=== PATIENT | male | born 2000 | race Caucasian/White ===

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

== ENCOUNTER 2019-08-12 20:35 | Emergency (ER) | payer OTHER ==
[2019-08-12 20:51] VITALS: BP 127/84
--- NOTE | 2019-08-12 21:28 | UC ---
Lower Extremity/Ankle HPI - HPI Summary HPI Summary: WHILE AT WORK THIS EVENING AT TOPS A PIECE OF HEAVY EQUIPMENT FELL ON PATIENT'S RIGHT GREAT TOE. HE HAS SOME BRUISING AND MILD DISCOMFORT. IS ABLE TO WALK WITHOUT MUCH PAIN. - History of Current Complaint Chief Complaint: UCLowerExtremity Stated Complaint: R FOOT INJURY Time Seen by Provider: 08/12/19 20:52 Hx Obtained From: Patient, Family/[employer] Support - MOM Onset/Duration: Sudden Onset, Lasting Hours, Still Present Severity Initially: Mild Severity Currently: Mild Pain Intensity: 2 Pain Scale Used: 0-10 Numeric Aggravating Factor(s): Ambulation Alleviating Factor(s): Rest, Elevation Able to Bear Weight: Yes - Allergies/Home Medications Allergies/Adverse Reactions: Allergies Allergy/AdvReac Type Severity Reaction Status Date / Time dexmethylphenidate Allergy Hives Verified 08/12/19 20:51 [From Focalin] SUPREX Allergy Hives Uncoded 08/12/19 20:51 Home Medications: Home Medications NK [No Home Medications Reported] 08/12/19 [History Confirmed 08/12/19] PMH/Surg Hx/FS Hx/Imm Hx - Additional Past Medical History Additional PMH: ADHD - Surgical History Surgical History: Yes Surgery Procedure, Year, and Place: ear tubes age 2 - Family History Known Family History: Positive: Hypertension - Social History Alcohol Use: None Substance Use Type: None Smoking Status (MU): Never Smoked Tobacco - Immunization History Most Recent Influenza Vaccination: 2013 Vaccination Up to Date: Yes Review of Systems All Other Systems Reviewed And Are Negative: Yes Constitutional: Positive: Negative Skin: Positive: Bruising Respiratory: Positive: Negative Cardiovascular: Positive: Negative Gastrointestinal: Positive: Negative Physical Exam Triage Information Reviewed: Yes Appearance: Well-Appearing, No Pain Distress, Well-Nourished Vital Signs: Initial Vital Signs Temp 98 F 08/12/19 20:43 Pulse 79 08/12/19 20:43 Resp 16 08/12/19 20:43 BP 127/84 08/12/19 20:43 Pulse Ox 100 08/12/19 20:43 Vital Signs Reviewed: Yes Eyes: Positive: Conjunctiva Clear ENT: Positive: Hearing grossly normal Neck: Positive: Supple Respiratory: Positive: No respiratory distress, No accessory muscle use Cardiovascular: Positive: Pulses Normal Abdomen Description: Positive: Soft Musculoskeletal: Positive: ROM Intact, No Edema, Other: - SOFT TISSUE TENDERNESS RIGHT GREAT TOE BUT NO CLEAR BONY TENDERNESS Neurological: Positive: Alert Psychological: Positive: Age Appropriate Behavior Skin: Positive: Other - BRUISING OVERLYING RIGHT GREAT TOE Diagnostics - Radiology RIGHT GREAT TOE XRAYS Radiology Interpretation Completed By: ED Physician Lower Extremity Course/Dx - Course Course Of Treatment: NO FRACTURE OR DISLOCATION ON MY INITIAL INTERPRETATION. RADIOLOGY READ IS PENDING. CONSERVATIVE MANAGEMENT WITH REST, ICE, ELEVATION AND OTC MEDICATIONS NEEDED FOR DISCOMFORT. FOLLOW-UP WITH PCP OR ORTHOPEDICS IF SYMPTOMS NOT IMPROVING EXPECTED OVER THE NEXT COUPLE OF WEEKS. - Differential Dx/Diagnosis Provider Diagnosis: Contusion of great toe, right Discharge ED - Sign-Out/Discharge Documenting (check all that apply): Patient Departure All imaging exams completed and their final reports reviewed: No - Discharge Plan Condition: Stable Disposition: HOME Patient Education Materials: Contusion in Adults (ED) Referrals: Foster Husain MD [Medical Doctor] - If Needed Clare Rosas MD [Primary Care Provider] - If Needed Additional Instructions: XRAY TODAY NEGATIVE FOR FRACTURE OR DISLOCATION ON MY INITIAL INTERPRETATION. WE WILL CALL YOU TOMORROW IF THE RADIOLOGY READ DIFFERS. YOUR SYMPTOMS SHOULD IMPROVE SIGNIFICANTLY OVER THE NEXT 1-2 WEEKS. IF YOU DO NOT IMPROVE EXPECTED FOLLOW-UP WITH YOUR PCP OR ORTHO. YOU MAY BENEFIT FROM REPEAT IMAGING AT THAT TIME. OTC IBUPROFEN OR ALEVE NEEDED FOR DISCOMFORT. REST, ICE, ELEVATE. - Billing Disposition and Condition Condition: STABLE Disposition: Home
--- NOTE | 2019-08-13 09:43 | UC ---
- Progress Note Progress Note: Reviewed radiology report and clinic notes. No change in treatment plan at this time. Course/Dx - Diagnoses Provider Diagnoses: Contusion of great toe, right Discharge ED - Sign-Out/Discharge Documenting (check all that apply): Post-Discharge Follow Up All imaging exams completed and their final reports reviewed: Yes - Discharge Plan Condition: Stable Disposition: HOME Patient Education Materials: Contusion in Adults (ED) Referrals: Foster Husain MD [Medical Doctor] - If Needed Clare Rosas MD [Primary Care Provider] - If Needed Additional Instructions: XRAY TODAY NEGATIVE FOR FRACTURE OR DISLOCATION ON MY INITIAL INTERPRETATION. WE WILL CALL YOU TOMORROW IF THE RADIOLOGY READ DIFFERS. YOUR SYMPTOMS SHOULD IMPROVE SIGNIFICANTLY OVER THE NEXT 1-2 WEEKS. IF YOU DO NOT IMPROVE EXPECTED FOLLOW-UP WITH YOUR PCP OR ORTHO. YOU MAY BENEFIT FROM REPEAT IMAGING AT THAT TIME. OTC IBUPROFEN OR ALEVE NEEDED FOR DISCOMFORT. REST, ICE, ELEVATE. - Billing Disposition and Condition Condition: STABLE Disposition: Home
== END 2019-08-12 21:31 | disposition home or self-care (01) ==
LOC: UCEAST 20:35
DX: S90.111A Contusion of right great toe without damage to nail, initial encounter (principal); F90.9 Attention-deficit hyperactivity disorder, unspecified type; Z88.2 Allergy status to sulfonamides; Z88.8 Allergy status to other drugs, medicaments and biological substances; W20.8XXA Other cause of strike by thrown, projected or falling object, initial encounter; Y92.9 Unspecified place or not applicable; Y99.0 Civilian activity done for income or pay
CPT/HCPCS: 99211; G0463